=== PATIENT | female | born 1980 | race American Indian/Alaskan Native ===

== ENCOUNTER 2020-03-21 14:38 | Inpatient (IN) | payer BC, OTHER ==
[2020-03-21] MEDS ORDERED: SIMETHICONE 80 MG CHEW TAB PO PRN (16:33)
[2020-03-21] MEDS ORDERED: ONDANSETRON 4 MG/2 ML INJ IV PRN (16:33)
[2020-03-21] MEDS ORDERED: ACETAMINOPHEN 325 MG TAB PO PRN (16:33)
[2020-03-21] MEDS ORDERED: guaiFENesin DM 200/20 MG ORAL LIQD 10 ML PO PRN (16:33)
[2020-03-21] MEDS ORDERED: DOCUSATE SODIUM 100 MG CAP PO PRN (16:33)
[2020-03-21] MEDS ORDERED: diphenhydrAMINE 25 MG CAP PO PRN (16:33)
--- NOTE | 2020-03-21 16:48 | History and Physical Report ---
History of Present Illness Date of examination: 03/21/20 (pt sent from [facility] for PreE evaluation) Chief complaint: the specialist sent me to be evaluated for my Blood pressure. History of present illness: Seen in [facility] office today for evaluation due to maternal CHTN and being AMA. BP there was 161/108 and the repeat was 150/90 Received a call from Dr Singer recommending admission to L&D for PreE w/u EDC Confirmation: 05/05/2020 GA 33w4d today Past History : 2 Term Births: 1 Premature Births: 0 Living Children: 1 Para: 1 Mult. Births: 0 Prev : 1 Prev. attempt? 0 Aborta: 0 Elect. Ab: 0 Spont. 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 of genital herpes: no Partner hx. of genital herpes: no Rash, Viral, or Febrile illness since last LMP? no Varicella/Chicken Pox Status: Previous Disease Genetic History ADVANCED MATERNAL AGE Congenital Heart Defect: Mom: no Dad: no Erick Disease: Mom: no Dad: no Thalassemia Mom: no Dad: no Neural Tube Defect Mom: no Dad: no Down's Syndrome Mom: no Dad: no Manjeet-Sachs Mom: no Dad: no Sickle Cell Disease/Trait Mom: no Dad: no Hemophilia Mom: no Dad: no Muscular Dystrophy Mom: no Dad: no Cystic Fibrosis Mom: no Dad: no Desi Chorea Mom: no Dad: no Mental Retardation Mom: no Dad: no Fragile X Mom: no Dad: no Other Genetic/Chromosomal Disorder Mom: no Dad: no Child w/other defect Mom: no Dad: no Enviromental Exposures Xray Exposure: no Medication, drug, or alcohol use since LMP: no Chemical/Other Exposure: no Exposure to Cat Liter: no Hx of Parvovirus (Fifth Disease): no 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 Medications (reviewed today): None Current Allergies (reviewed today): No known allergies Past History Past Medical History: hypertension Past Surgical History: section - Obstetrical History Expected Date of Delivery: 05/05/20 Actual Gestation: 33 Week(s) 4 Day(s) : 2 Para: 1 (primary c/s) Hx # Term Pregnancies: 1 Number of Pregnancies: 0 Spontaneous Abortions: 0 Induced : 0 Number of Living Children: 1 Medications and Allergies Allergies Allergy/AdvReac Type Severity Reaction Status Date / Time No Known Allergies Allergy Verified 03/21/20 16:44 Home Medications Medication Instructions Recorded Confirmed Last Taken Type Aspirin [Aspirin BABY CHEW TAB] 81 mg PO QDAY 03/21/20 03/21/20 03/21/20 09:30 History 168/Iron/Folic/Omega3 1 each PO DAILY 03/21/20 03/21/20 03/21/20 09:30 History [One-A-Day -1 Softgel] Active Meds: Active Medications Acetaminophen (Tylenol) 650 mg PO Q4H PRN PRN Reason: Pain MILD(1-3)/Fever >100.5/[place]ORD Diphenhydramine HCl (Benadryl) 25 mg PO Q6H PRN PRN Reason: Itching Docusate Sodium (Colace) 100 mg PO Q12H PRN PRN Reason: Constipation Guaifenesin (Guaifenesin Dm Syrup) 10 ml PO Q6H PRN PRN Reason: Cough Lactated Ringer's (Lactated Ringers) 1,000 mls @ 75 mls/hr IV DIRECT GAYLE Multivitamins/Iron/Calcium ( Vitamin) 1 each PO QDAY GAYLE Ondansetron HCl (Zofran) 4 mg IV Q6H PRN PRN Reason: Nausea And Vomiting Simethicone (Mylicon) 80 mg PO Q6H PRN PRN Reason: Gas pain Review of Systems All systems: negative - Vital Signs Vital signs: Vital Signs Pulse BP 93 H 129/85 03/21/20 15:15 03/21/20 15:15 Temp Pulse Resp BP Pulse Ox 98.8 F 88 18 137/72 03/21/20 15:16 03/21/20 16:32 03/21/20 15:16 03/21/20 16:32 - Physical Exam Breasts: Positive: deferred Cardiovascular: Regular rate, Normal S1, Normal S2 Lungs: Positive: Clear to auscultation Abdomen: Positive: normal appearance, soft, normal bowel sounds. Negative: distention, tenderness Vulva: both: normal Vagina: Positive: normal moisture. Negative: discharge Cervix: Negative: lesion, discharge Uterus: Positive: normal size, normal contour Adnexa: both: normal Anus/Rectum: Positive: normal perianal skin, heme negative. Negative: rectal mass, hemorrhoids Extremities: Positive: edema (trace BL LE) Deep Tendon Reflex Grade: Normal +2 - Obstetrical FHR: category 1 Uterine Contraction Monitor Mode: External Uterine Contraction Pattern: Absent Uterine Tone Measurement Phase: Resting Results All other labs normal. HBsAg Screen Negative Negative *1 RPR Non Reactive Non Reactive *2 Rubella Antibodies, IgG 7.89 index Immune >0.99 *3 Non-immune <0.90 Equivocal 0.90 - 0.99 Immune >0.99 ABO Grouping O *4 Rh Factor Positive *5 Please note: Prior records for this patient's ABO / Rh type are not available for additional verification. Antibody Screen Negative Negative *6 WBC 8.7 x10E3/uL 3.4-10.8 *7 RBC [L] 3.55 x10E6/uL 3.77-5.28 *8 Hemoglobin 11.4 g/dL 11.1-15.9 *9 Hematocrit 34.9 % 34.0-46.6 *10 MCV [H] 98 fL 79-97 *11 MCH 32.1 pg 26.6-33.0 *12 MCHC 32.7 g/dL 31.5-35.7 *13 RDW 13.1 % 11.7-15.4 *14 Platelets 223 x10E3/uL 150-450 *15 Neutrophils 68 % Not Estab. *16 Lymphs 25 % Not Estab. *17 Monocytes 7 % Not Estab. *18 Eos 0 % Not Estab. *19 Basos 0 % Not Estab. *20 ! Immature Cells <No Reported Value> *21 Neutrophils (Absolute) 5.9 x10E3/uL 1.4-7.0 *22 Lymphs (Absolute) 2.2 x10E3/uL 0.7-3.1 *23 Monocytes(Absolute) 0.7 x10E3/uL 0.1-0.9 *24 Eos (Absolute) 0.0 x10E3/uL 0.0-0.4 *25 Baso (Absolute) 0.0 x10E3/uL 0.0-0.2 *26 ! Immature Granulocytes 0 % Not Estab. *27 ! Immature Grans (Abs) 0.0 x10E3/uL 0.0-0.1 *28 ! NRBC <No Reported Value> *29 Hematology Comments: <No Reported Value> *30 Tests: (2) HIV Ag/Ab with Reflex ([id number]) HIV Screen 4th Generation wRfx Non Reactive Non Reactive *31 Tests: (3) HCV Ab w/Rflx to Verification ([id number]) ! HCV Ab <0.1 s/co ratio 0.0-0.9 *32 Tests: (4) Comment: ([id number]) ! Comment: SPRCS *33 Non reactive HCV antibody screen is consistent with no HCV infection, unless recent infection is suspected or other evidence exists to indicate HCV infection. Tests: (5) Urine Culture, Routine ([id number]) Urine Culture, Routine Final report *34 Tests: (6) Result ([id number]) ! Result 1 No growth *35 Assessment and Plan 39yo @ 33w4d with CHTN whose BP was elevated X 2 readings in [facility] office this AM. Dr Singer called and spoke with CNM and recommended admission to L&D for evaluation of PreE. 24hr urine begun all orders in EMR. Betamethasone ordered X 2 doses. Pt did report to the nurse that she was very stressed at her [facility] appt due to a financial strain of a septic tank repair. BPs since arrival have been normo tensive Dr Castrejon made aware of pt's status
[2020-03-21] MEDS ORDERED: ACETAMINOPHEN 500 MG TAB PO PRN (17:06)
[2020-03-21 17:24] LABS: Bacteria,Urine 1+ /HPF (Negative); Bilirubin,Urine NEG (Negative); Blood,Urine NEG (Negative); Color,Urine Yellow (Yellow); Mucus,Urine FEW /HPF; Protein,Urine <15 mg/dL mg/dL (Negative); Urobilinogen,Urine < 2.0 mg/dL (<2.0)
[2020-03-21] MEDS: BETAMET ACET/BETAMET NA PH 6 MG/ML INJ 5 ML MDV IM SCH (17:38)
[2020-03-21 19:04] LABS: Hematocrit 32.2 % (30.3-42.9); Hemoglobin 11.1 gm/dl (10.1-14.3); Mean Corpuscular HGB Conc 35 % (30-34); Mean Corpuscular Volume 98 fl (79-97); Platelet Count 206 K/mm3 (140-440); Red Blood Count 3.29 M/mm3 (3.65-5.03); Red Cell Distribution Width 13.6 % (13.2-15.2)
[2020-03-21 19:28] LABS: Alanine Aminotransferase 12 units/L (7-56); Uric Acid 3.9 mg/dL (3.5-7.6)
[2020-03-21] MEDS: LACTATED RINGERS 1,000 ML IV SCH (21:07)
[2020-03-21] MEDS ORDERED: ZOLPIDEM 5 MG TAB PO PRN (22:46)
--- NOTE | 2020-03-22 06:59 | Progress Note ---
Assessment and Plan From 1956 to 158 pt's BP:140/92,156/100,156/98,180/98. Prior to this time and since 199 BP 140-120/80-70 Pt denies any CRAWFORD, blurred vision, chest pain. Urine output >1000 since starting collection. IVFs infusing @ 75cc/hr Ctx appear to be more freq and increased intensity on the EFM. IVFs increased to 125cc/hr Will continue close monitoring. Will consult with Dr Vallejo. - Patient Problems (1) 33 weeks gestation of Onset Date: ~03/22/20 Current Visit: Yes Status: Acute Plan to address problem: Second dose of BMZ will be due today @ 1730 (2) Hypertension, essential Onset Date: ~03/22/20 Current Visit: Yes Status: Acute Plan to address problem: 24hr urine will be complete @ 1500 today Subjective - Subjective Date of service: 03/22/20 (resting No c/o voiced) Principal diagnosis: IUP@ 33w5d collecting 24hr urine; CHTN; BMZ 2nd dose due @ 1730 today Interval history: Seen in [facility] office today for evaluation due to maternal CHTN and being AMA. BP there was 161/108 and the repeat was 150/90 Received a call from Dr Singer recommending admission to L&D for PreE w/u EDC Confirmation: 05/05/2020 GA 33w4d today Past History : 2 Term Births: 1 Premature Births: 0 Living Children: 1 Para: 1 Mult. Births: 0 Prev : 1 Prev. attempt? 0 Aborta: 0 Elect. Ab: 0 Spont. 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 of genital herpes: no Partner hx. of genital herpes: no Rash, Viral, or Febrile illness since last LMP? no Varicella/Chicken Pox Status: Previous Disease Genetic History ADVANCED MATERNAL AGE Congenital Heart Defect: Mom: no Dad: no Erick Disease: Mom: no Dad: no Thalassemia Mom: no Dad: no Neural Tube Defect Mom: no Dad: no Down's Syndrome Mom: no Dad: no Manjeet-Sachs Mom: no Dad: no Sickle Cell Disease/Trait Mom: no Dad: no Hemophilia Mom: no Dad: no Muscular Dystrophy Mom: no Dad: no Cystic Fibrosis Mom: no Dad: no [place] Chorea Mom: no Dad: no Mental Retardation Mom: no Dad: no Fragile X Mom: no Dad: no Other Genetic/Chromosomal Disorder Mom: no Dad: no Child w/other defect Mom: no Dad: no Enviromental Exposures Xray Exposure: no Medication, drug, or alcohol use since LMP: no Chemical/Other Exposure: no Exposure to Cat Liter: no Hx of Parvovirus (Fifth Disease): no 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 Medications (reviewed today): None Current Allergies (reviewed today): No known allergies Patient reports: movement normal, contractions (irregular pt states they feel like cramps) Objective - Vital Signs Vital Signs: Vital Signs - 12hr 03/21/20 03/21/20 03/21/20 19:23 19:24 19:57 Temperature 99.2 F Pulse Rate 102 H 102 H Blood Pressure 137/87 140/92 03/21/20 03/21/20 03/21/20 20:58 21:05 21:59 Temperature Pulse Rate 111 H 100 H 101 H Blood Pressure 156/100 156/98 136/78 03/21/20 03/21/20 03/21/20 22:57 23:25 23:59 Temperature 98.5 F Pulse Rate 103 H 100 H Blood Pressure 139/90 126/79 03/22/20 03/22/20 03/22/20 00:58 01:59 02:04 Temperature Pulse Rate 90 103 H 99 H Blood Pressure 141/87 180/98 141/88 03/22/20 03/22/20 03/22/20 02:59 03:25 03:58 Temperature 98.5 F Pulse Rate 100 H 96 H Blood Pressure 127/70 126/79 03/22/20 04:58 Temperature Pulse Rate 96 H Blood Pressure 123/79 - Exam Breasts: deferred Cardiovascular: Regular rate Lungs: Clear to auscultation Abdomen: Present: normal appearance, soft. Absent: distention, tenderness Uterus: Present: normal FHR: auscultation normal, category 1 Uterine Contraction Monitor Mode: External Uterine Contraction Pattern: Irregular Uterine Tone Measurement Phase: Resting Uterine Contraction Intensity: Mild Extremities: edema Deep Tendon Reflex Grade: Normal +2 - Labs Labs: Abnormal Labs 03/21/20 03/21/20 18:30 18:30 WBC 11.4 H RBC 3.29 L MCV 98 H MCH 34 H MCHC 35 H Creatinine 0.5 L Laboratory Results - last 24 hr 03/21/20 03/21/20 03/21/20 17:02 18:30 18:30 WBC 11.4 H RBC 3.29 L Hgb 11.1 Hct 32.2 MCV 98 H MCH 34 H MCHC 35 H RDW 13.6 Plt Count 206 Creatinine 0.5 L Estimated GFR > 60 Uric Acid 3.9 AST 13 ALT 12 Lactate Dehydrogenase 143 Urine Color Yellow Urine Turbidity Clear Urine pH 7.0 Ur Specific [place] 1.009 Urine Protein <15 mg/dl Urine Glucose (UA) Neg Urine Ketones Neg Urine Blood Neg Urine Nitrite Neg Urine Bilirubin Neg Urine Urobilinogen < 2.0 Ur Leukocyte Esterase Neg Urine WBC (Auto) 1.0 Urine RBC (Auto) 2.0 U Epithel Cells (Auto) 1.0 Urine Bacteria (Auto) 1+ Urine Mucus Few Blood Type Antibody Screen 03/21/20 18:30 WBC RBC Hgb Hct MCV MCH MCHC RDW Plt Count Creatinine Estimated GFR Uric Acid AST ALT Lactate Dehydrogenase Urine Color Urine Turbidity Urine pH Ur Specific [place] Urine Protein Urine Glucose (UA) Urine Ketones Urine Blood Urine Nitrite Urine Bilirubin Urine Urobilinogen Ur Leukocyte Esterase Urine WBC (Auto) Urine RBC (Auto) U Epithel Cells (Auto) Urine Bacteria (Auto) Urine Mucus Blood Type O POSITIVE Antibody Screen Negative
[2020-03-22] MEDS: LACTATED RINGERS 1,000 ML IV SCH ×2 (07:32→09:23)
[2020-03-22] MEDS ORDERED: PRENATAL VIT27-FE FUMARATE-FOLIC ACID VIT TAB PO SCH (10:00)
--- NOTE | 2020-03-22 17:30 | Progress Note ---
Assessment and Plan Total Protein 320 Dr Vallejo notified Pt will remain in [facility] overnight to continue to monitor BP. Dr Vallejo aware of BPs. Pt denies CRAWFORD, blurrred vision, chest pain. IUP @ 33w6d elevated BP P: PM care, diet, shower. Will continue toco and NST Q2hr. Pt agrees to POC. All questions addressed. - Patient Problems (1) 33 weeks gestation of Onset Date: ~03/22/20 Current Visit: Yes Status: Acute (2) Hypertension, essential Onset Date: ~03/22/20 Current Visit: Yes Status: Acute Subjective - Subjective Date of service: 03/22/20 ("I know my pressures are up.") Principal diagnosis: IUP@ 33w5d collecting 24hr urine; CHTN; BMZ 2nd dose due @ 1730 today Interval history: Seen in [facility] office today for evaluation due to maternal CHTN and being AMA. BP there was 161/108 and the repeat was 150/90 Received a call from Dr Singer recommending admission to L&D for PreE w/u EDC Confirmation: 05/05/2020 GA 33w4d today Past History : 2 Term Births: 1 Premature Births: 0 Living Children: 1 Para: 1 Mult. Births: 0 Prev : 1 Prev. attempt? 0 Aborta: 0 Elect. Ab: 0 Spont. 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 of genital herpes: no Partner hx. of genital herpes: no Rash, Viral, or Febrile illness since last LMP? no Varicella/Chicken Pox Status: Previous Disease Genetic History ADVANCED MATERNAL AGE Congenital Heart Defect: Mom: no Dad: no Erick Disease: Mom: no Dad: no Thalassemia Mom: no Dad: no Neural Tube Defect Mom: no Dad: no Down's Syndrome Mom: no Dad: no Manjeet-Sachs Mom: no Dad: no Sickle Cell Disease/Trait Mom: no Dad: no Hemophilia Mom: no Dad: no Muscular Dystrophy Mom: no Dad: no Cystic Fibrosis Mom: no Dad: no Desi Chorea Mom: no Dad: no Mental Retardation Mom: no Dad: no Fragile X Mom: no Dad: no Other Genetic/Chromosomal Disorder Mom: no Dad: no Child w/other defect Mom: no Dad: no Enviromental Exposures Xray Exposure: no Medication, drug, or alcohol use since LMP: no Chemical/Other Exposure: no Exposure to Cat Liter: no Hx of Parvovirus (Fifth Disease): no 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 Medications (reviewed today): None Current Allergies (reviewed today): No known allergies Patient reports: movement normal, contractions (irregular pt states they feel like cramps) Objective - Vital Signs Vital Signs: Vital Signs - 12hr 03/22/20 03/22/20 03/22/20 07:02 07:21 07:22 Temperature 98.8 F Pulse Rate 103 H 97 H 97 H Respiratory 14 Rate Blood Pressure 132/84 137/92 Blood Pressure 137/92 [Left] 03/22/20 03/22/20 03/22/20 07:59 08:57 09:57 Temperature Pulse Rate 98 H 111 H 102 H Respiratory Rate Blood Pressure 129/82 126/82 142/96 Blood Pressure [Left] 03/22/20 03/22/20 03/22/20 10:58 11:09 11:17 Temperature Pulse Rate 100 H 108 H 100 H Respiratory Rate Blood Pressure 166/100 154/100 138/90 Blood Pressure [Left] 03/22/20 03/22/20 03/22/20 11:49 11:50 11:58 Temperature 98.6 F Pulse Rate 106 H 106 H 115 H Respiratory 18 Rate Blood Pressure 140/93 135/98 Blood Pressure 140/93 [Left] 03/22/20 03/22/20 03/22/20 12:57 13:57 14:57 Temperature Pulse Rate 103 H 96 H 104 H Respiratory Rate Blood Pressure 145/97 121/75 136/95 Blood Pressure [Left] 03/22/20 03/22/20 03/22/20 15:42 15:44 15:58 Temperature 99.1 F 98.2 F Pulse Rate 73 100 H Respiratory 18 14 Rate Blood Pressure 155/101 Blood Pressure [Left] 03/22/20 03/22/20 03/22/20 16:44 16:59 17:07 Temperature Pulse Rate 104 H 100 H 95 H Respiratory Rate Blood Pressure 144/90 156/102 145/100 Blood Pressure [Left] - Exam Breasts: deferred Cardiovascular: Regular rate Lungs: Clear to auscultation Abdomen: Present: normal appearance, soft. Absent: distention, tenderness Uterus: Present: normal FHR: auscultation normal, category 1 Uterine Contraction Monitor Mode: External Uterine Contraction Pattern: Irregular Uterine Tone Measurement Phase: Resting Uterine Contraction Intensity: Mild Extremities: edema Deep Tendon Reflex Grade: Normal +2 - Labs Labs: Abnormal Labs 03/21/20 03/21/20 18:30 18:30 WBC 11.4 H RBC 3.29 L MCV 98 H MCH 34 H MCHC 35 H Creatinine 0.5 L Laboratory Results - last 24 hr 03/21/20 03/21/20 03/21/20 17:02 18:30 18:30 WBC 11.4 H RBC 3.29 L Hgb 11.1 Hct 32.2 MCV 98 H MCH 34 H MCHC 35 H RDW 13.6 Plt Count 206 Creatinine 0.5 L Estimated GFR > 60 Uric Acid 3.9 AST 13 ALT 12 Lactate Dehydrogenase 143 Urine Color Yellow Urine Turbidity Clear Urine pH 7.0 Ur Specific [place] 1.009 Urine Protein <15 mg/dl Urine Glucose (UA) Neg Urine Ketones Neg Urine Blood Neg Urine Nitrite Neg Urine Bilirubin Neg Urine Urobilinogen < 2.0 Ur Leukocyte Esterase Neg Urine WBC (Auto) 1.0 Urine RBC (Auto) 2.0 U Epithel Cells (Auto) 1.0 Urine Bacteria (Auto) 1+ Urine Mucus Few Blood Type Antibody Screen 03/21/20 18:30 WBC RBC Hgb Hct MCV MCH MCHC RDW Plt Count Creatinine Estimated GFR Uric Acid AST ALT Lactate Dehydrogenase Urine Color Urine Turbidity Urine pH Ur Specific [place] Urine Protein Urine Glucose (UA) Urine Ketones Urine Blood Urine Nitrite Urine Bilirubin Urine Urobilinogen Ur Leukocyte Esterase Urine WBC (Auto) Urine RBC (Auto) U Epithel Cells (Auto) Urine Bacteria (Auto) Urine Mucus Blood Type O POSITIVE Antibody Screen Negative
[2020-03-22] MEDS: BETAMET ACET/BETAMET NA PH 6 MG/ML INJ 5 ML MDV IM SCH (17:33)
[2020-03-23] MEDS: LACTATED RINGERS 1,000 ML IV SCH (05:57)
--- NOTE | 2020-03-23 08:15 | Progress Note ---
Assessment and Plan - Patient Problems (1) Mild pre-eclampsia Current Visit: Yes Status: Acute Qualifiers: Trimester: third trimester Qualified Code(s): O14.03 - Mild to moderate pre-eclampsia, third trimester Plan to address problem: -close observation for now. BPs not persistently elevated so pt did not get magnesium -s/p BMZ x2 -await recommendations by [facility] (2) 33 weeks gestation of Onset Date: ~03/22/20 Current Visit: Yes Status: Acute (3) AMA (advanced maternal age) multigravida 35+ Current Visit: Yes Status: Acute (4) Hypertension, essential Onset Date: ~03/22/20 Current Visit: Yes Status: Acute (5) Previous section Current Visit: Yes Status: Acute Subjective - Subjective Principal diagnosis: IUP@ 33w5d collecting 24hr urine; CHTN; BMZ 2nd dose due @ 1730 today Interval history: BASELINE PROTEIN IN 11/2019 114mg/24 hr. Yesterday was 320mg/24hr. Consulted Dr. Oriana Jackman as pt is being followed by [facility] in terms of timing of delivery. I d/w that we will await recommendations regarding outpt vs inpt management and timing of delivery 34 vs 37 wks. Pt expressed understanding but does desire d/c home today. Patient reports: movement normal, no vaginal bleeding, no contractions (irregular pt states they feel like cramps) Objective - Vital Signs Vital Signs: Vital Signs - 12hr 03/22/20 03/22/20 03/22/20 20:57 21:57 22:57 Temperature Pulse Rate 94 H 93 H 89 Respiratory Rate Blood Pressure 131/85 144/90 125/83 O2 Sat by Pulse Oximetry 03/22/20 03/23/20 03/23/20 23:57 00:51 00:56 Temperature Pulse Rate 94 H 92 H Respiratory Rate Blood Pressure 137/89 O2 Sat by Pulse 96 97 Oximetry 03/23/20 03/23/20 03/23/20 00:57 01:00 01:02 Temperature 98.8 F Pulse Rate 89 88 Respiratory 16 Rate Blood Pressure 113/71 O2 Sat by Pulse 97 Oximetry 03/23/20 03/23/20 03/23/20 01:06 01:20 01:26 Temperature Pulse Rate 92 H 86 87 Respiratory Rate Blood Pressure O2 Sat by Pulse 97 97 97 Oximetry 03/23/20 03/23/20 03/23/20 01:31 01:36 01:41 Temperature Pulse Rate 87 90 86 Respiratory Rate Blood Pressure O2 Sat by Pulse 97 97 97 Oximetry 03/23/20 03/23/20 03/23/20 01:46 01:51 01:56 Temperature Pulse Rate 87 88 91 H Respiratory Rate Blood Pressure O2 Sat by Pulse 98 96 97 Oximetry 03/23/20 03/23/20 03/23/20 02:00 02:06 02:11 Temperature Pulse Rate 85 89 90 Respiratory Rate Blood Pressure O2 Sat by Pulse 96 96 96 Oximetry 03/23/20 03/23/20 03/23/20 02:16 02:21 02:26 Temperature Pulse Rate 88 92 H 92 H Respiratory Rate Blood Pressure O2 Sat by Pulse 96 96 96 Oximetry 03/23/20 03/23/20 03/23/20 02:31 02:36 02:41 Temperature Pulse Rate 92 H 94 H 93 H Respiratory Rate Blood Pressure O2 Sat by Pulse 96 96 96 Oximetry 03/23/20 03/23/20 03/23/20 02:46 02:49 02:50 Temperature Pulse Rate 94 H 106 H 88 Respiratory Rate Blood Pressure 133/85 O2 Sat by Pulse 96 94 Oximetry 03/23/20 03/23/20 03/23/20 02:51 02:56 03:01 Temperature Pulse Rate 95 H 103 H 79 Respiratory Rate Blood Pressure O2 Sat by Pulse 98 96 97 Oximetry 03/23/20 03/23/20 03/23/20 03:06 03:11 03:16 Temperature Pulse Rate 81 84 89 Respiratory Rate Blood Pressure O2 Sat by Pulse 97 97 98 Oximetry 03/23/20 03/23/20 03/23/20 03:21 03:26 03:31 Temperature Pulse Rate 86 85 93 H Respiratory Rate Blood Pressure O2 Sat by Pulse 98 99 97 Oximetry 03/23/20 03/23/20 03/23/20 03:36 03:41 03:45 Temperature Pulse Rate 70 88 82 Respiratory Rate Blood Pressure O2 Sat by Pulse 97 96 96 Oximetry 03/23/20 03/23/20 03/23/20 03:51 03:56 03:59 Temperature Pulse Rate 82 85 82 Respiratory Rate Blood Pressure 121/75 O2 Sat by Pulse 97 96 Oximetry 03/23/20 03/23/20 03/23/20 04:01 04:02 04:06 Temperature Pulse Rate 89 73 82 Respiratory Rate Blood Pressure O2 Sat by Pulse 96 94 97 Oximetry 03/23/20 03/23/20 03/23/20 04:11 04:16 04:21 Temperature Pulse Rate 86 78 89 Respiratory Rate Blood Pressure O2 Sat by Pulse 97 97 96 Oximetry 03/23/20 03/23/20 03/23/20 04:26 04:30 04:31 Temperature Pulse Rate 91 H 79 90 Respiratory Rate Blood Pressure O2 Sat by Pulse 97 94 96 Oximetry 03/23/20 03/23/20 03/23/20 04:35 04:41 04:45 Temperature Pulse Rate 89 84 84 Respiratory Rate Blood Pressure O2 Sat by Pulse 96 96 96 Oximetry 03/23/20 03/23/20 03/23/20 04:51 04:56 04:58 Temperature Pulse Rate 85 84 91 H Respiratory Rate Blood Pressure 133/76 O2 Sat by Pulse 96 96 Oximetry 03/23/20 03/23/20 03/23/20 05:01 05:06 05:11 Temperature Pulse Rate 90 94 H 84 Respiratory Rate Blood Pressure O2 Sat by Pulse 96 97 97 Oximetry 03/23/20 03/23/20 03/23/20 05:16 05:21 05:26 Temperature Pulse Rate 92 H 86 84 Respiratory Rate Blood Pressure O2 Sat by Pulse 97 97 97 Oximetry 03/23/20 03/23/20 03/23/20 05:31 05:36 05:38 Temperature Pulse Rate 86 88 93 H Respiratory Rate Blood Pressure O2 Sat by Pulse 94 97 93 Oximetry 03/23/20 03/23/20 03/23/20 05:41 05:46 05:47 Temperature Pulse Rate 90 90 Respiratory Rate Blood Pressure O2 Sat by Pulse 95 97 88 Oximetry 03/23/20 05:51 Temperature Pulse Rate 211 H Respiratory Rate Blood Pressure O2 Sat by Pulse 79 L Oximetry - Exam Lungs: Normal air movement Abdomen: Present: soft. Absent: distention, tenderness, guarding FHR: category 1 Uterine Contraction Pattern: Absent Extremities: normal Deep Tendon Reflex Grade: Normal +2 - Labs Labs: Abnormal Labs 03/21/20 03/21/20 03/22/20 18:30 18:30 15:13 WBC 11.4 H RBC 3.29 L MCV 98 H MCH 34 H MCHC 35 H Creatinine 0.5 L Ur Total Protein 24 Hr 320.00 H Laboratory Results - last 24 hr 03/22/20 15:13 Urine Total Volume 4000 Ur Total Protein 24 Hr 320.00 H Urine Total Protein 8
[2020-03-23 08:36] VITALS: BP 125/80
--- NOTE | 2020-03-23 12:16 | Discharge Summary ---
Providers - Providers Date of Admission: 03/21/20 16:33 Date of discharge: 03/23/20 (pt dischgared without an order from provider) Attending physician: NICCI ZUNIGA 03/23/20 08:27 Consult to Physician [CONS] Routine Comment: Consulting Provider: ZAKIYA SWAN Physician Instructions: Reason For Exam: mild pre E; AmA Primary care physician: NICCI ZUNIGA Hospitalization Reason for admission: other (33.6 week mild pre E super imposed on CHTN) Discharge diagnosis: other (see above) Hospital course: Pt was admitted for evaluation for elevated blood pressure. While admitted was noted to have labile blood pressures. She did get steroids and was being closely monitored for need for medications ect. Blood pressures were not consistently in the severe ranges. She was noted to have 24 protein of 320mg/24 hours. Discussions were made of possible d/c home with follow in the next se veral days in the office in bed rest, but pt was released prior to full recommendations being placed on the chart. Provider was not aware of the discharge until pt had been gone for some time. Pt does have appointments in both offices prior on 03/31/2020( in one week). Condition at discharge: Stable Disposition: [id number] TO HOME OR SELFCARE - Discharge Diagnoses (1) Mild pre-eclampsia Status: Acute Qualifiers: Trimester: third trimester Qualified Code(s): O14.03 - Mild to moderate pre-eclampsia, third trimester (2) 33 weeks gestation of Status: Acute (3) AMA (advanced maternal age) multigravida 35+ Status: Acute (4) Hypertension, essential Status: Acute (5) Previous section Status: Acute Plan - Provider Discharge Summary Additional instructions: [] Smoking cessation referral if applicable(refer to patient education folder for contact #) [] Refer to [facility] Booklet Call your doctor immediately for: * Fever > 100.5 * Heavy vaginal bleeding ( >1 pad per hour) * Severe persistent headache * Shortness of breath * Reddened, hot, painful area to leg or breast * Drainage or odor from incision. * Keep incision clean and dry at all times and follow doctor's instructions regarding bathing/showering - Follow up plan Follow up: NICCI ZUNIGA MD [Primary Care Provider] - 7 Days
--- NOTE | 2020-03-23 12:16 | Event Note ---
Date: 03/23/20 I noted that pt was not on my list of patients admitted to the hospital and upon questioning RN pt had been discharge without an order being given. At this time the full report from Dr. Jackman was also not on the chart. RN stated that she thought she had an order for discharge but no discharge order was written by either myself or Dr. Jackman. I was not aware pt had been released from the hospital.
== END 2020-03-23 10:55 | disposition home or self-care (01) | DRG 833 ==
LOC: TRG 14:38 → APU 14:38 → LD 14:38 → TRG 16:33 → LD 16:33
PROVIDERS: ADMIT Obstetrics & Gynecology; ATTEND Obstetrics & Gynecology
DX: O14.03 Mild to moderate pre-eclampsia, third trimester (principal); O09.523 Supervision of elderly multigravida, third trimester; Z3A.33 33 weeks gestation of pregnancy; O34.219 Maternal care for unspecified type scar from previous cesarean delivery; Z20.828 Contact with and (suspected) exposure to other viral communicable diseases
CPT/HCPCS: 36415; 81001; 82565; 83615; 84156; 84450; 84460; 84550; 85027; 86850; 86900; 86901; G0378; J0702; J7120; U0003